=== PATIENT | female | born 1980 | race Caucasian/White ===

== ENCOUNTER 2017-04-12 06:28 | Emergency (ER) | payer OTHER ==
[~2017-04-12] VITALS: Ht 154.9 cm; Wt 73.0 kg
[~2017-04-12 06:28] MED LIST: ALPR0.5T10 PO; FAMO-18 PO; ONDA4TAB8 PO; TEMA15CA PO; TRAM50TA2 PO; ZIPR20CA7 PO; ZIPR60CA6 PO; ZOF8 PO
[2017-04-12 06:31] VITALS: Ht 154.9 cm; Wt 73.0 kg
[2017-04-12] MEDS ORDERED: ONDANSETRON (ODT) 4 MG TAB ODT STA (06:52)
[2017-04-12] MEDS ORDERED: ONDANSETRON 4 MG INJ IM STA (06:56)
--- NOTE | 2017-04-12 06:59 | ERD ---
ER Documentation Chief Complaint Date/Time DATE: 04/12/17 TIME: 06:57 Chief Complaint vomiting and diarrhea HPI 36-year-old female presents emergency department with 2 day history of vomiting , diarrhea, pelvic pressure, cough and runny nose. She states she has had tactile fevers as well. She reports that she has had intermittent vomiting for the past 2 days, that were nonbloody nonbilious episodes, and up to 10 episodes of diarrhea nonbloody number mucousy. She denies any abdominal pain at this time. She denies recent travel. ROS All systems reviewed and are negative except as per history of present illness. Medications Home Meds Active Scripts Ondansetron (Ondansetron Odt) 4 Mg Tab.rapdis, 4 MG PO Q6H Y for NAUSEA AND/OR VOMITING, #10 TAB Prov:FRANKY OVIEDO PA-C 04/12/17 Azithromycin* (Zithromax*) 500 Mg Tablet, 1000 MG PO ONCE, #2 TAB Prov:FRANKY OVIEDO PA-C 04/12/17 Famotidine* (Pepcid*) 20 Mg Tablet, 20 MG PO BID, #30 TAB Prov:PHUONG QUIJANO 07/08/15 Tramadol HCl (Tramadol HCl) 50 Mg Tab, 50 MG PO Q6 Y for PAIN, #10 TAB Prov:PHUONG QUIJANO 07/08/15 Ondansetron Hcl* (Zofran*) 4 Mg Tablet, 4 MG PO Q8 for NAUSEA AND/OR VOMITING, # 10 TAB Prov:PHUONG QUIJANO 07/08/15 Famotidine* (Pepcid*) 20 Mg Tablet, 20 MG PO BID, #30 TAB Prov:MONIQUE TAVERAS MD 06/29/15 Tramadol HCl (Tramadol HCl) 50 Mg Tab, 50 MG PO Q4 Y for PAIN, #16 TAB Prov:MONIQUE TAVERAS MD 06/29/15 Ondansetron Hcl* (Zofran* ODT) 8 mg -ODT Tab.disper, 8 MG PO Q6 Y for NAUSEA AND /OR VOMITING, #10 TAB Prov:MONIQUE TAVERAS MD 06/29/15 Reported Medications Temazepam* (Temazepam*) 15 Mg Capsule, 15 MG PO HS Y for INSOMNIA, CAP 9/21/15 Alprazolam (Alprazolam) 0.5 Mg Tab.rapdis, 0.5 MG PO BID, TAB 06/29/15 Ziprasidone* (Geodon*) 60 Mg Capsule, 60 MG PO PM, CAP 06/29/15 Ziprasidone* (Geodon*) 20 Mg Capsule, 20 MG PO AM, CAP 06/29/15 Allergies Allergies: Coded Allergies: acetaminophen (Verified Allergy, Unknown, 07/08/15) penicillin (Verified Allergy, Unknown, 07/08/15) prochlorperazine (Verified Allergy, Unknown, 07/08/15) promethazine (Verified Allergy, Unknown, 06/29/15) PMhx/Soc History of Surgery: Yes (bialat tubulagation) Anesthesia Reaction: No Hx Neurological Disorder: No Hx Respiratory Disorders: No Hx Cardiac Disorders: No Hx Psychiatric Problems: Yes (bipolar,schizo) Hx Miscellaneous Medical Probl: Yes (polyps in colon, severe N/V) Hx Alcohol Use: No Hx Substance Use: Yes (marijuana q day) Hx Tobacco Use: No Physical Exam Vitals Vital Signs Date Time Temp Pulse Resp B/P Pulse Ox O2 Delivery O2 Flow Rate FiO2 04/12/17 06:31 97.9 90 18 118/79 99 Physical Exam General: Well-developed, well-nourished. The patient appears in no acute distress. HEENT: Head is normocephalic, atraumatic. No scleral icterus. Pupils are equal , round, and reactive. Oral mucous membranes are moist. No pharyngeal erythema. Neck: Supple. Nontender. Lungs: Clear to auscultation. Normal air movement. Heart: Regular rate and rhythm. S1 and S2 are normal. No murmurs, gallops, or rubs. Abdomen: Soft, nontender, nondistended. Bowel sounds are normoactive. Extremities: No clubbing or cyanosis. Normal pulses. Moving extremities x 4. No weakness. Neurologic: Alert and oriented 3. No focal deficits. Skin: Normal turgor. No rash or lesions. Results 24 hrs Laboratory Tests Test 04/12/17 07:30 04/12/17 07:31 Bedside Urine pH (LAB) 8.5 Bedside Urine Protein (LAB) 1+ Bedside Urine Glucose (UA) Negative Bedside Urine Ketones (LAB) Negative Bedside Urine Blood Trace-intact Bedside Urine Nitrite (LAB) Negative Bedside Urine Leukocyte Esterase (L Negative Bedside Glucose 127mg/dL Current Medications Medications (Trade) Dose Ordered Sig/Chase Route PRN Reason Start Time Stop Time Status Last Admin Dose Admin Ondansetron HCl (Zofran Odt) 4 mg ONCE STAT ODT 04/12/17 06:52 04/12/17 06:57 DC Ondansetron HCl (Zofran Inj) 4 mg ONCE STAT IM 04/12/17 06:56 04/12/17 06:58 DC 04/12/17 07:00 Procedures/MDM ED course: She was given Zofran 4 mg IM, she states that the Zofran ODT causes her to have more nausea and vomiting. Accu-Chek was 127. Medical decision making: This is a 36-year-old female coming in with vomiting and diarrhea, also reports sore throat and cough for the past 2 days. She also states that this could have been from food that she had eaten the other night, she reports that she had gotten sick after eating pasta. Patient's abdominal examination is benign, she does not have any signs of diverticulitis, bowel perforation, intra-abdominal abscess, acute appendicitis, or acute hepatobiliary process. She was given Zofran emergency department feeling much better and will be discharged home. Urine was negative for infection. Departure Diagnosis: Primary Impression: Vomiting and diarrhea Condition: FRANKY Easley PA-C Apr 12, 2017 06:58
[2017-04-12 07:26] LABS: URINE BLOOD (Dip) POC Trace-intact (NEGATIVE)
[2017-04-12] MEDS ORDERED: ONDA4TAB14 PO (07:52)
[2017-04-12] MEDS ORDERED: AZIT500T3 PO (07:52)
== END 2017-04-12 08:39 | disposition home or self-care (01) ==
LOC: FTE 06:28
DX: R11.10 Vomiting, unspecified (principal); R19.7 Diarrhea, unspecified; R10.2 Pelvic and perineal pain
CPT/HCPCS: 81003; 82962; 96372; J2405; Z7502

== ENCOUNTER 2017-08-11 06:28 | Emergency (ER) | payer OTHER ==
[~2017-08-11] VITALS: Ht 154.9 cm; Wt 78.0 kg
[~2017-08-11 06:28] MED LIST changes: +AZIT500T3 PO; -FAMO-18 PO; +FAMO-96 PO; +ONDA4TAB14 PO
[2017-08-11 06:38] VITALS: Ht 154.9 cm; Wt 78.0 kg
[2017-08-11] MEDS ORDERED: KETOROLAC 30 MG INJ IV STA (06:43)
[2017-08-11] MEDS ORDERED: ONDANSETRON 4 MG INJ IV STA (06:43)
[2017-08-11] MEDS ORDERED: SOD CHLORIDE 0.9% 1,000 ML IV STA (06:43)
[2017-08-11] MEDS ORDERED: LORAZEPAM 2 MG INJ IV ONE (07:00)
--- NOTE | 2017-08-11 07:54 | RADRPT ---
PROCEDURE: CT Abdomen and pelvis without contrast. CLINICAL INDICATION: Abdominal pain. Nausea and vomiting. TECHNIQUE: CT scan of the abdomen and pelvis without contrast was performed on a multidetector hig h-resolution CT scan. . Coronal and sagittal reformatted images were obtained from the [facility] e images. Standard CT scan of the abdomen pelvis without contrast protocols were performed. The total exam CTDI equals 13.42 mGy and the total exam DLP equals 712.22 mGy-cm. One or more of the following dose reduction techniques were used: - Automated exposure control. - Adjustment of the mA and/or kV according to patient size. Use of iterative reconstruction technique. COMPARISON: CT abdomen pelvis 06/29/2015 FINDINGS: The kidneys are normal in size with mild bilateral medullary nephrocalcinosis. No hydronephrosis or intra renal masses bilaterally. There are 2 punctate 2 mm non-obstructing inferior right renal calci fied calculi. Urinary bladder is contracted but otherwise unremarkable. Anteverted anteflexed uterus. Punctate calcification in the left adnexa likely a tiny left ovarian c alcification of the tiny dermoid. Low densities in the right and left adnexa likely ovarian follicle s. No evidence of intra-abdominal free air, free fluid, abscesses or lymphadenopathy. The appendix is unremarkable. The stomach, small bowel and large bowel are unremarkable. Liver spleen pancreas adrenal glands and gallbladder are unremarkable. No evidence biliary ductal di lation. Mild atherosclerosis of the abdominal aorta but no evidence of aneurysm. Abdominal pelvic wall unrem arkable. Lung bases unremarkable. Osseous structures are unremarkable. IMPRESSION: 1. 2 punctate 2 mm non-obstructing inferior right renal calcified calculi. No other calcified urina ry calculi and no obstructive uropathy. 2. Unremarkable appendix. No evidence gastrointestinal disease. 3. No evidence of intra or free air fluid abscesses or lymphadenopathy. RPTAT:AAJJ Physician Margo Date Time Electronically viewed and signed by Physician Margo on 08/11/2017 07:54 /
--- NOTE | 2017-08-11 07:56 | RADRPT ---
PROCEDURE: US Pelvis. CLINICAL INDICATION: Abdominal Pain LMP 07/20/2017 TECHNIQUE: Multiple sonographic images of the pelvis were obtained utilizing a transabdominal and endovaginal technique. The images were reviewed on a PACS workstation. COMPARISON: None. FINDINGS: The uterus is anteverted and measures 8.9 x 3.9 x 4.6 cm. The endometrial echo complex is thickened and measures 1.0 cm. The cervix is normal. There is no evidence for free fluid. The right ovary has a normal echotexture and measures 3.6 x 2.1 x 2.1 cm . The left ovary has a normal echotexture and measures 3.1 x 1.6 x 1.9 cm. Doppler flow is demonstrated in both ovaries. No adnexal mass is identi fied.. IMPRESSION: Thickened endometrium. No evidence of ovarian torsion. Physician Carlyn Date Time Electronically viewed and signed by Physician Carlyn on 08/11/2017 07:56 /
[2017-08-11] MEDS ORDERED: ZIPR80CA22 PO (08:01)
[2017-08-11] MEDS ORDERED: TEMA30CA PO (08:02)
[2017-08-11] MEDS ORDERED: ONDA4TAB14 PO (08:39)
[2017-08-11] MEDS ORDERED: IBUP-1542 PO (08:39)
[2017-08-11 08:47] VITALS: BP 110/61; PULSE 66; RESP 18
--- NOTE | 2017-08-11 10:06 | ERD ---
ER Documentation Chief Complaint Chief Complaint Abdominal Pain HPI Patient is a 36-year-old female with asthma who presents with abdominal pain as well as nausea and vomiting. The patient was brought in by ambulance. The symptoms started 2 days ago. She says that she cannot sleep. She tried Zofran at home without help. She said the pain is been constant and sharp in nature. She has subjective fever but has not taken her temperature. Upon review of old medical records this is the patient's fourth visit to the ER since 2014. ROS All systems reviewed and are negative except as per history of present illness. Medications Home Meds Active Scripts Ondansetron (Ondansetron Odt) 4 Mg Tab.rapdis, 4 MG PO Q6H Y for NAUSEA AND/OR VOMITING, #30 TAB Prov:MELANIE GONSALEZ MD 08/11/17 Ibuprofen* (Motrin*) 600 Mg Tab, 600 MG PO Q6H Y for PAIN AND OR ELEVATED TEMP, #30 TAB Prov:MELANIE GONSALEZ MD 08/11/17 Reported Medications Temazepam* (Temazepam*) 30 Mg Capsule, 30 MG PO HS Y for INSOMNIA, CAP 08/11/17 Ziprasidone* (Geodon*) 80 Mg Capsule, 80 MG PO BID, CAP 08/11/17 Discontinued Reported Medications Temazepam* (Temazepam*) 15 Mg Capsule, 15 MG PO HS Y for INSOMNIA, CAP 06/29/15 Alprazolam (Alprazolam) 0.5 Mg Tab.rapdis, 0.5 MG PO BID, TAB 06/29/15 Ziprasidone* (Geodon*) 60 Mg Capsule, 60 MG PO PM, CAP 06/29/15 Ziprasidone* (Geodon*) 20 Mg Capsule, 20 MG PO AM, CAP 06/29/15 Discontinued Scripts Ondansetron (Ondansetron Odt) 4 Mg Tab.rapdis, 4 MG PO Q6H Y for NAUSEA AND/OR VOMITING, #10 TAB Prov:FRANKY OVIEDO PA-C 04/12/17 Azithromycin* (Zithromax*) 500 Mg Tablet, 1000 MG PO ONCE, #2 TAB Prov:FRANKY OVIEDO PA-C 04/12/17 Famotidine* (Pepcid*) 20 Mg Tablet, 20 MG PO BID, #30 TAB Prov:PHUONG QUIJANO 9/30/15 Tramadol HCl (Tramadol HCl) 50 Mg Tab, 50 MG PO Q6 Y for PAIN, #10 TAB Prov:PHUONG QUIJANO 07/08/15 Ondansetron Hcl* (Zofran*) 4 Mg Tablet, 4 MG PO Q8 for NAUSEA AND/OR VOMITING, # 10 TAB Prov:PHUONG QUIJANO 07/08/15 Famotidine* (Pepcid*) 20 Mg Tablet, 20 MG PO BID, #30 TAB Prov:MONIQUE TAVERAS MD 06/29/15 Tramadol HCl (Tramadol HCl) 50 Mg Tab, 50 MG PO Q4 Y for PAIN, #16 TAB Prov:MONIQUE TAVERAS MD 06/29/15 Ondansetron Hcl* (Zofran* ODT) 8 mg -ODT Tab.disper, 8 MG PO Q6 Y for NAUSEA AND /OR VOMITING, #10 TAB Prov:MONIQUE TAVERAS MD 06/29/15 Allergies Allergies: Coded Allergies: acetaminophen (Verified Allergy, Unknown, 08/11/17) penicillin (Verified Allergy, Unknown, 08/11/17) prochlorperazine (Verified Allergy, Unknown, 08/11/17) promethazine (Verified Allergy, Unknown, 08/11/17) PMhx/Soc History of Surgery: Yes (bialat tubulagation) Anesthesia Reaction: No Hx Neurological Disorder: No Hx Respiratory Disorders: No Hx Cardiac Disorders: No Hx Psychiatric Problems: Yes (bipolar,schizo) Hx Miscellaneous Medical Probl: Yes (polyps in colon, severe N/V) Hx Alcohol Use: No Hx Substance Use: Yes (marijuana q day) Hx Tobacco Use: No Smoking Status: Never smoker FmHx Family History: diabetes Physical Exam Vitals Vital Signs Date Time Temp Pulse Resp B/P Pulse Ox O2 Delivery O2 Flow Rate FiO2 08/11/17 08:47 66 18 110/61 99 Room Air 08/11/17 07:51 66 18 105/61 99 Room Air 08/11/17 06:38 98.2 76 21 135/84 99 Physical Exam Const: Moderate distress secondary to pain Head: Atraumatic Eyes: Normal Conjunctiva ENT: Normal External Ears, Nose and Mouth. Neck: Full range of motion..~ No meningismus. Resp: Clear to auscultation bilaterally Cardio: Regular rate and rhythm, no murmurs Abd: Soft, right lower quadrant tenderness to palpation without rebound or guarding Skin: No petechiae or rashes Back: No midline or flank tenderness Ext: No cyanosis, or edema Neur: Awake and alert Psych: Normal Mood and Affect Result Diagram: 08/11/17 0656 08/11/17 0656 Results 24 hrs Laboratory Tests Test 08/11/17 06:45 08/11/17 06:56 Urine Color YELLOW Urine Clarity CLOUDY Urine pH 9.0 Urine Specific [place] 1.030 Urine Ketones 1+mg/dL Urine Nitrite NEGATIVEmg/dL Urine Bilirubin NEGATIVEmg/dL Urine Urobilinogen 1+mg/dL Urine Leukocyte Esterase NEGATIVELeu/ul Urine Microscopic RBC 46/HPF Urine Microscopic WBC 2/HPF Urine Squamous Epithelial Cells MODERATE/HPF Urine Bacteria FEW/HPF Urine Mucus MODERATE/HPF Urine Hemoglobin 1+mg/dL Urine Glucose NEGATIVEmg/dL Urine Total Protein 2+mg/dl White Blood Count 9.010^3/ul Red Blood Count 4.6510^6/ul Hemoglobin 14.0g/dl Hematocrit 40.3% Mean Corpuscular Volume 86.7fl Mean Corpuscular Hemoglobin 30.1pg Mean Corpuscular Hemoglobin Concent 34.7g/dl Red Cell Distribution Width 13.2% Platelet Count 81484^3/UL Mean Platelet Volume 11.1fl Neutrophils % 77.1% Lymphocytes % 16.8% Monocytes % 5.6% Eosinophils % 0.0% Basophils % 0.3% Nucleated Red Blood Cells % 0.0/100WBC Neutrophils # 7.010^3/ul Lymphocytes # 1.510^3/ul Monocytes # 0.510^3/ul Eosinophils # 0.010^3/ul Basophils # 0.010^3/ul Nucleated Red Blood Cells # 0.010^3/ul Sodium Level 144mmol/L Potassium Level 3.9mmol/L Chloride Level 105mmol/L Carbon Dioxide Level 26mmol/L Anion Gap 17 Blood Urea Nitrogen 10mg/dl Creatinine 0.82mg/dl Glucose Level 130mg/dl Calcium Level 9.8mg/dl Total Bilirubin 0.6mg/dl Direct Bilirubin 0.00mg/dl Indirect Bilirubin 0.6mg/dl Aspartate Amino Transf (AST/SGOT) 23IU/L Alanine Aminotransferase (ALT/SGPT) 31IU/L Alkaline Phosphatase 100IU/L Total Protein 8.4g/dl Albumin 4.7g/dl Globulin 3.70g/dl Albumin/Globulin Ratio 1.27 Lipase 42U/L Current Medications Medications (Trade) Dose Ordered Sig/Chase Route PRN Reason Start Time Stop Time Status Last Admin Dose Admin Sodium Chloride (NS) 1,000 ml @ 1,000 mls/hr Q1H STAT IV 08/11/17 06:43 08/11/17 07:42 DC 08/11/17 07:19 Ondansetron HCl (Zofran Inj) 4 mg ONCE STAT IV 08/11/17 06:43 08/11/17 06:46 DC 08/11/17 07:19 Ketorolac Tromethamine (Toradol) 30 mg ONCE STAT IV 08/11/17 06:43 08/11/17 06:46 DC 08/11/17 07:19 Lorazepam (Ativan) 0.5 mg ONCE ONCE IV 08/11/17 07:00 08/11/17 07:01 DC 08/11/17 07:19 Procedures/MDM CT scan negative for appendicitis per radiology. Ultrasound negative for ovarian torsion per radiology. Patient is a 36-year-old female presents with right lower quadrant abdominal pain. She had a workup including laboratory studies, CT scan, and ultrasound. There was no sign of surgical process. Laboratory studies are basically normal. Urine shows no sign of infection. I doubt appendicitis, cholecystitis , pancreatitis, or bowel obstruction. I doubt or ectopic . I doubt ovarian torsion. The patient will be discharged home but will need close follow-up with her primary doctor within 24 hours for reevaluation. She can return sooner for any worsening symptoms. Departure Diagnosis: Primary Impression: Abdominal pain Abdominal location: right lower quadrant Qualified Code: R10.31 - Right lower quadrant abdominal pain Condition: Fair Patient Instructions: Abdominal Pain Referrals: Dr. Sewell Additional Instructions: FOLLOW UP WITH YOUR PRIMARY CARE PHYSICIAN TOMORROW.Return to this facility if you are not improving as expected. MELANIE GONSALEZ MD Aug 11, 2017 10:06
== END 2017-08-11 08:48 | disposition home or self-care (01) ==
LOC: E/R 06:28
DX: R10.31 Right lower quadrant pain (principal); R11.2 Nausea with vomiting, unspecified; J45.909 Unspecified asthma, uncomplicated
CPT/HCPCS: 36415; 74176; 76830; 76856; 80053; 81001; 83690; 85025; 96374; 96375; J1885; J2060; J2405; J7030; Z7502

== ENCOUNTER 2017-10-07 01:17 | Emergency (ER) | END 2017-10-07 10:29 | disposition home or self-care (01) ==

== ENCOUNTER 2017-11-02 07:08 | Emergency (ER) | END 2017-11-02 12:11 | disposition home or self-care (01) ==

== ENCOUNTER 2018-04-04 09:20 | Emergency (ER) | END 2018-04-04 12:52 | disposition home or self-care (01) ==

== ENCOUNTER 2018-09-25 10:39 | Emergency (ER) | END 2018-09-25 15:23 | disposition home or self-care (01) ==

== ENCOUNTER 2019-01-08 15:05 | Emergency (ER) | payer OTHER ==
[~2019-01-08] VITALS: Wt 80.0 kg
[~2019-01-08 15:05] MED LIST changes: +ACET500C5 PO; -ALPR0.5T10 PO; -AZIT500T3 PO; +IBUP-1542 PO; +METO10TA92 PO; +METO5TAB2 PO; -ONDA4TAB14 PO; -ONDA4TAB8 PO; -TEMA15CA PO; +TEMA30CA PO; -TRAM50TA2 PO; -ZIPR20CA7 PO; -ZIPR60CA6 PO; +ZIPR80CA22 PO; -ZOF8 PO
[2019-01-08] MEDS ORDERED: METOCLOPRAMIDE 10 MG INJ IV ONE (16:30)
[2019-01-08] MEDS ORDERED: DIPHENHYDRAMINE 50 MG INJ IV ONE (16:30)
[2019-01-08] MEDS ORDERED: SOD CHLORIDE 0.9% 1,000 ML IV ONE (16:30)
[2019-01-08] MEDS ORDERED: METO10TA92 PO (18:30)
--- NOTE | 2019-01-08 18:32 | ERD ---
ER Documentation Chief Complaint Chief Complaint vomiting and diarrhea x 2 days ROS All systems reviewed and are negative except as per history of present illness. Medications Home Meds Active Scripts Metoclopramide* (Reglan*) 10 Mg Tablet, 10 MG PO Q6H PRN for NAUSEA AND OR VOMITING, #20 TAB Prov:SUNITA WHALEN DO 01/08/19 Ibuprofen* (Motrin*) 600 Mg Tab, 600 MG PO Q6, #30 TAB Prov:SABRINA CAVAZOS PA-C 09/25/18 Famotidine* (Pepcid*) 20 Mg Tablet, 20 MG PO DAILY, #20 TAB Prov:RODOLFO GOMEZ PA-C 04/04/18 Acetaminophen* (Tylophen*) 500 Mg Capsule, 1 CAP PO Q4 PRN for PAIN AND OR ELEVATED TEMP, #30 CAP Prov:RODOLFO GOMEZ PA-C 04/04/18 Metoclopramide* (Reglan*) 10 Mg Tablet, 10 MG PO Q6 PRN for NAUSEA AND/OR VOMITING, #20 TAB Prov:RODOLFO GOMEZ PA-C 04/04/18 Metoclopramide Hcl (Reglan) 5 Mg Tab, 5 MG PO Q6H PRN for NAUSEA for 20 Days, TAB Prov:IRMA LOPEZ MD 11/02/17 Reported Medications Temazepam* (Temazepam*) 30 Mg Capsule, 30 MG PO HS PRN for INSOMNIA, CAP 08/11/17 Ziprasidone* (Geodon*) 80 Mg Capsule, 80 MG PO BID, CAP 08/11/17 Allergies Allergies: Coded Allergies: acetaminophen (Verified Allergy, Unknown, 04/04/18) penicillin (Verified Allergy, Unknown, 04/04/18) prochlorperazine (Verified Allergy, Unknown, 04/04/18) promethazine (Verified Allergy, Unknown, 04/04/18) PMhx/Soc History of Surgery: Yes (bilateral tubal ligation) Anesthesia Reaction: No Hx Neurological Disorder: No Hx Respiratory Disorders: No Hx Cardiac Disorders: No Hx Psychiatric Problems: Yes (bipolar,schizo) Hx Miscellaneous Medical Probl: Yes (polyps in colon, severe N/V) Hx Alcohol Use: No Hx Substance Use: Yes (marijuana q day) Hx Tobacco Use: No Smoking Status: Never smoker Physical Exam Vitals Vital Signs Date Temp Pulse Resp B/P (MAP) Pulse Ox O2 O2 Flow FiO2 Time Delivery Rate 01/08/19 97.5 110 18 141/87 99 15:08 (105) Physical Exam Const: No acute distress Head: Atraumatic Eyes: Normal Conjunctiva ENT: Normal External Ears, Nose and Mouth. Neck: Full range of motion. No meningismus. Resp: Clear to auscultation bilaterally Cardio: Regular rate and rhythm, no murmurs Abd: Soft, non tender, non distended. Normal bowel sounds Skin: No petechiae or rashes Back: No midline or flank tenderness Ext: No cyanosis, or edema Neur: Awake and alert Psych: Normal Mood and Affect Result Diagram: 01/08/19 1651 01/08/19 1651 Results 24 hrs Laboratory Tests Test 01/08/19 16:51 White Blood Count 13.0 10^3/ul Red Blood Count 4.65 10^6/ul Hemoglobin 13.8 g/dl Hematocrit 40.5 % Mean Corpuscular Volume 87.1 fl Mean Corpuscular Hemoglobin 29.7 pg Mean Corpuscular Hemoglobin Concent 34.1 g/dl Red Cell Distribution Width 14.5 % Platelet Count 261 10^3/UL Mean Platelet Volume 11.1 fl Immature Granulocytes % 0.500 % Neutrophils % 73.2 % Lymphocytes % 19.6 % Monocytes % 6.3 % Eosinophils % 0.1 % Basophils % 0.3 % Nucleated Red Blood Cells % 0.0 /100WBC Immature Granulocytes # 0.060 10^3/ul Neutrophils # 9.6 10^3/ul Lymphocytes # 2.6 10^3/ul Monocytes # 0.8 10^3/ul Eosinophils # 0.0 10^3/ul Basophils # 0.0 10^3/ul Nucleated Red Blood Cells # 0.0 10^3/ul Sodium Level 143 mmol/L Potassium Level 3.5 mmol/L Chloride Level 109 mmol/L Carbon Dioxide Level 21 mmol/L Anion Gap 13 Blood Urea Nitrogen 9 mg/dl Creatinine 0.82 mg/dl Est Glomerular Filtrat Rate mL/min > 60 mL/min Glucose Level 103 mg/dl Calcium Level 10.2 mg/dl Total Bilirubin 0.5 mg/dl Direct Bilirubin 0.00 mg/dl Indirect Bilirubin 0.5 mg/dl Aspartate Amino Transf (AST/SGOT) 21 IU/L Alanine Aminotransferase (ALT/SGPT) 17 IU/L Alkaline Phosphatase 104 IU/L Total Protein 8.2 g/dl Albumin 4.9 g/dl Globulin 3.30 g/dl Albumin/Globulin Ratio 1.48 Current Medications Medications Dose Sig/Chase Start Time Status Last (Trade) Ordered Route PRN Stop Time Admin Dose Reason Admin Sodium 1,000 ml @ Q1H ONCE 01/08/19 DC 01/08/19 Chloride 1,000 mls/hr IV 16:30 01/08/19 16:45 17:29 10 mg ONCE ONCE 01/08/19 DC 01/08/19 Metoclopramid IV 16:30 01/08/19 16:46 e HCl 16:31 (Reglan) 25 mg ONCE ONCE 01/08/19 DC 01/08/19 Diphenhydrami IV 16:30 01/08/19 16:46 ne HCl 16:31 (Benadryl) Departure Diagnosis: Primary Impression: Vomiting Vomiting type: unspecified Vomiting Intractability: unspecified Nausea presence: unspecified Qualified Codes: R11.10 - Vomiting, unspecified Condition: Fair Patient Instructions: Vomiting (8Y-Adult) Referrals: [facility] (PCP) Additional Instructions: Call your primary care doctor TOMORROW for an appointment during the next 1-2 days.See the doctor sooner or return here if your condition worsens before your appointment time. SUNITA WHALEN DO Jan 08, 2019 18:32
[2019-01-08 18:47] VITALS: BP 125/80; PULSE 84; RESP 18
== END 2019-01-08 18:49 | disposition home or self-care (01) ==
LOC: FTE 15:05
DX: R11.10 Vomiting, unspecified (principal)
CPT/HCPCS: 80053; 85025; J1200; J2765; J7030; 96361; 96374; 96375

== ENCOUNTER 2019-04-15 14:50 | Emergency (ER) | payer OTHER ==
[~2019-04-15] VITALS: Ht 160 cm; Wt 78.7 kg
[2019-04-15 14:53] VITALS: Ht 160 cm; Wt 78.7 kg
--- NOTE | 2019-04-15 16:07 | ERD ---
ER Documentation Chief Complaint Chief Complaint vomitting HPI The patient is a 38-year-old female, presenting to the ER because of decreased appetite, vomiting or diarrhea for the last 3 days, had similar symptoms previously, denies hematemesis, hematochezia. She denies fever, chills, neck pain, chest pain, dyspnea, complains of vague upper abdominal discomfort from the vomiting, denies dysuria. She denies any recent traveling, smokes socially, denies drinking, irregular menstrual. She denies any illicit drug Past medical history: Bipolar, asthma Surgical history: Tubal ligation, polypectomy from colonoscopy recently ROS All systems reviewed and are negative except as per history of present illness. Medications Home Meds Active Scripts Metoclopramide* (Reglan*) 10 Mg Tablet, 10 MG PO Q6 PRN for NAUSEA AND/OR VOMITING, #10 TAB Prov:SUNITA HAGAN MD 04/15/19 Pantoprazole* (Protonix*) 40 Mg Tablet.dr, 40 MG PO DAILY, #10 TAB Prov:SUNITA HAGAN MD 04/15/19 Pantoprazole (Protonix) 40 Mg Tabec, 40 MG PO DAILY, #10 TAB Prov:SUNITA HAGAN MD 04/15/19 Metoclopramide* (Reglan*) 10 Mg Tablet, 10 MG PO Q6 PRN for NAUSEA AND/OR VOMITING, #10 TAB Prov:SUNITA HAGAN MD 04/15/19 Metoclopramide* (Reglan*) 10 Mg Tablet, 10 MG PO Q6H PRN for NAUSEA AND OR VOMITING, #20 TAB Prov:SUNITA WHALEN DO 01/08/19 Ibuprofen* (Motrin*) 600 Mg Tab, 600 MG PO Q6, #30 TAB Prov:SABRINA CAVAZOS PA-C 09/25/18 Famotidine* (Pepcid*) 20 Mg Tablet, 20 MG PO DAILY, #20 TAB Prov:RODOLFO GOMEZ PA-C 04/04/18 Acetaminophen* (Tylophen*) 500 Mg Capsule, 1 CAP PO Q4 PRN for PAIN AND OR ELEVATED TEMP, #30 CAP Prov:RODOLFO GOMEZ PA-C 04/04/18 Metoclopramide* (Reglan*) 10 Mg Tablet, 10 MG PO Q6 PRN for NAUSEA AND/OR VOMITING, #20 TAB Prov:RODOLFO GOMEZ PA-C 04/04/18 Metoclopramide Hcl (Reglan) 5 Mg Tab, 5 MG PO Q6H PRN for NAUSEA for 20 Days, TAB Prov:IRMA LOPEZ MD 11/02/17 Reported Medications Temazepam* (Temazepam*) 30 Mg Capsule, 30 MG PO HS PRN for INSOMNIA, CAP 08/11/17 Ziprasidone* (Geodon*) 80 Mg Capsule, 80 MG PO BID, CAP 08/11/17 Allergies Allergies: Coded Allergies: acetaminophen (Verified Allergy, Unknown, 04/04/18) penicillin (Verified Allergy, Unknown, 04/04/18) prochlorperazine (Verified Allergy, Unknown, 04/04/18) promethazine (Verified Allergy, Unknown, 04/04/18) PMhx/Soc History of Surgery: Yes (bilateral tubal ligation) Anesthesia Reaction: No Hx Neurological Disorder: No Hx Respiratory Disorders: No Hx Cardiac Disorders: No Hx Psychiatric Problems: Yes (bipolar,schizo) Hx Miscellaneous Medical Probl: Yes (polyps in colon, severe N/V) Hx Alcohol Use: No Hx Substance Use: Yes (marijuana q day) Hx Tobacco Use: No Physical Exam Vitals Vital Signs Date Temp Pulse Resp B/P (MAP) Pulse Ox O2 O2 Flow FiO2 Time Delivery Rate 04/15/19 97.6 82 16 131/86 99 Room Air 19:52 (101) 04/15/19 98.0 84 18 149/96 99 14:53 (113) Physical Exam Const: No acute distress. Head: Atraumatic. Eyes: Normal Conjunctiva. ENT: Normal External Ears, Nose and Mouth. Neck: Full range of motion. No meningismus. Resp: Clear to auscultation bilaterally. Cardio: Regular rate and rhythm. Abd: Soft, non distended, normal bowel sounds, mild epigastric and right upper quadrant discomfort, no right lower quadrant/rigidity/rebound/CVA tenderness Skin: No petechiae or rashes. Back: No midline or flank tenderness. Ext: No cyanosis, or edema. Neur: Awake and alert. No focal deficit Psych: Normal Mood and Affect. Result Diagram: 04/15/19 1627 04/15/19 1627 Results 24 hrs Laboratory Tests Test 04/15/19 16:27 04/15/19 17:45 04/15/19 17:50 White Blood Count 9.7 10^3/ul Red Blood Count 4.57 10^6/ul Hemoglobin 13.7 g/dl Hematocrit 39.4 % Mean Corpuscular Volume 86.2 fl Mean Corpuscular Hemoglobin 30.0 pg Mean Corpuscular Hemoglobin Concent 34.8 g/dl Red Cell Distribution Width 12.7 % Platelet Count 207 10^3/UL Mean Platelet Volume 11.0 fl Immature Granulocytes % 0.300 % Neutrophils % 75.7 % Lymphocytes % 18.1 % Monocytes % 5.4 % Eosinophils % 0.2 % Basophils % 0.3 % Nucleated Red Blood Cells % 0.0 /100WBC Immature Granulocytes # 0.030 10^3/ul Neutrophils # 7.4 10^3/ul Lymphocytes # 1.8 10^3/ul Monocytes # 0.5 10^3/ul Eosinophils # 0.0 10^3/ul Basophils # 0.0 10^3/ul Nucleated Red Blood Cells # 0.0 10^3/ul Sodium Level 145 mmol/L Potassium Level 3.6 mmol/L Chloride Level 111 mmol/L Carbon Dioxide Level 23 mmol/L Anion Gap 11 Blood Urea Nitrogen 10 mg/dl Creatinine 0.79 mg/dl Est Glomerular Filtrat Rate mL/min > 60 mL/min Glucose Level 107 mg/dl Calcium Level 10.6 mg/dl Total Bilirubin 0.7 mg/dl Direct Bilirubin 0.00 mg/dl Indirect Bilirubin 0.7 mg/dl Aspartate Amino Transf (AST/SGOT) 19 IU/L Alanine Aminotransferase (ALT/SGPT) 13 IU/L Alkaline Phosphatase 96 IU/L Total Protein 8.6 g/dl Albumin 4.8 g/dl Globulin 3.80 g/dl Albumin/Globulin Ratio 1.26 Lipase 91 U/L Urine Opiates Screen Negative Urine Barbiturates Negative Urine Amphetamines Screen Negative Urine Benzodiazepines Screen Negative Urine Cocaine Screen Negative Urine Cannabinoids Positive Ethyl Alcohol Level < 10.0 mg/dl POC Beta HCG, Qualitative NEGATIVE Bedside Urine pH (LAB) 8.5 Bedside Urine Protein (LAB) 2+ Bedside Urine Glucose (UA) Negative Bedside Urine Ketones (LAB) 3+ Bedside Urine Blood 1+ Bedside Urine Nitrite (LAB) Negative Bedside Urine Leukocyte Esterase (L Trace Current Medications Medications Dose Sig/Chase Start Time Status Last (Trade) Ordered Route PRN Stop Time Admin Dose Reason Admin Ondansetron 4 mg ONCE STAT 04/15/19 DC 04/15/19 HCl (Zofran IV 16:14 04/15/19 16:32 Inj) 16:17 Famotidine 20 mg ONCE ONCE 04/15/19 DC 04/15/19 (Pepcid Iv) IV 16:30 04/15/19 16:32 16:31 40 ml ONCE ONCE 04/15/19 DC Miscellaneous PO 17:30 04/15/19 Medication 17:34 (Gi Cocktail (2)) Ketorolac 30 mg ONCE STAT 04/15/19 DC 04/15/19 Tromethamine IV 17:22 04/15/19 17:37 (Toradol) 17:23 50 mg ONCE ONCE 04/15/19 DC 04/15/19 Diphenhydrami IV 18:00 04/15/19 18:46 ne HCl 18:01 (Benadryl) 10 mg ONCE ONCE 04/15/19 DC 04/15/19 Metoclopramid IV 18:00 04/15/19 18:46 e HCl 18:01 (Reglan) Procedures/[place] [id number] Radiology Main Line: [phone] DIAGNOSTIC IMAGING REPORT Patient: FLORINDA NEIL : 1980 Age: 38 Sex: F MR #: [id number] DOS: 04/15/19 1614 Ordering MD: SUNITA HAGAN MD Location: E/R Room/Bed: PROCEDURE: US Abdomen. CLINICAL INDICATION: abdominal pain TECHNIQUE: Multiple real-time images were acquired of the patient's right upper quadrant abdomen and retroperitoneum utilizing a high resolution transducer. COMPARISON: US ABDOMEN 04/04/2018 FINDINGS: The liver demonstrates normal echogenicity. The liver is enlarged in size and no focal solid lesions are seen. The liver measures 18.3 cm in length. The portal vein is patent with normal direction of flow. No intrahepatic biliary dilatation is seen. No gallstones are identified within the gallbladder. There is no pericholecystic fluid or gallbladder wall thickening. The common bile duct measures 4 mm in maximal dimension. The visualized portions of the pancreas are unremarkable. The tail of the pancreas is not seen. No free fluid is identified. The right kidney is normal in size, and demonstrate normal echogenicity and cortical thickness. The right kidney measures 10.6 cm in long dimension. There is no evidence of hydronephrosis. There are no kidney stones. RPTAT: AA IMPRESSION: Mild hepatomegaly. No evidence of gallstones. .Shar Pool MD, MD Date Time Electronically viewed and signed by .Shar Pool MD, MD on 04/15/2019 17:01 .S/ CC: SUNITA HAGAN MD [id number] MEDICAL MAKING DECISION: The patient is a 38-year-old female, presenting with recurrent vomiting of unclear etiology, was treated with Zofran IV, Pepcid IV, Benadryl 50 mg IV and Reglan 10 mg IV with good response, is stable for outpatient follow-up The differential diagnoses considered include but are not limited to cyclic vomiting syndrome, cholelithiasis, cholecystitis, choledocholithiasis, cholang itis, pancreatitis, hepatitis, gastritis, peptic ulcer disease, gastric ulcer, appendicitis, cystitis, diverticulitis, partial small bowel obstruction. Departure Diagnosis: Primary Impression: Vomiting Additional Impression: Marijuana abuse Condition: Good Comments The patient's blood pressure was elevated (>120/80) but appears stable without evidence of hypertension emergency or urgency. The patient was counseled about the risks of hypertension and urged to pursue outpatient monitoring and therapy within a week with their primary care physician. She was discharged with Reglan and Protonix I discussed the findings with the patient. I advised the patient to follow-up with the primary physician in about 1-2 days, sooner if needed and return if any concern. Disclaimer: Inadvertent spelling and grammatical errors are likely due to EHR/dictation software use and do not reflect on the overall quality of patient care. Also, please note that the electronic time recorded on this note does not necessarily reflect the actual time of the patient encounter. SUNITA HAGAN MD Apr 15, 2019 16:07
[2019-04-15] MEDS ORDERED: ONDANSETRON 4 MG INJ IV STA (16:14)
[2019-04-15] MEDS ORDERED: FAMOTIDINE 20 MG INJ IV ONE (16:30)
[2019-04-15] MEDS ORDERED: KETOROLAC 30 MG INJ IV STA (17:22)
[2019-04-15] MEDS ORDERED: LIDOCAINE/MYLANTA 40 ML BTL PO ONE (17:30)
[2019-04-15] MEDS ORDERED: DIPHENHYDRAMINE 50 MG INJ IV ONE (18:00)
[2019-04-15] MEDS ORDERED: METOCLOPRAMIDE 10 MG INJ IV ONE (18:00)
[2019-04-15] MEDS ORDERED: METO10TA92 PO ×2 (18:58→19:30)
[2019-04-15] MEDS ORDERED: PANT40TA4 PO (18:59)
[2019-04-15] MEDS ORDERED: PANT40TA3 PO (19:30)
[2019-04-15 19:52] VITALS: BP 131/86; PULSE 82; RESP 16
== END 2019-04-15 19:53 | disposition home or self-care (01) ==
LOC: E/R 14:50
DX: R11.10 Vomiting, unspecified (principal)
CPT/HCPCS: 36415; 76705; 80053; 80307; 81003; 81025; 83690; 85025; 96374; 96375; J1200; J1885; J2405; J2765; Z7502; Z7610

== ENCOUNTER 2019-05-13 05:55 | Emergency (ER) | payer OTHER ==
[~2019-05-13] VITALS: Ht 154.9 cm; Wt 78.8 kg
[~2019-05-13 05:55] MED LIST changes: +ACET325T33 PO; +PANT40TA3 PO; +PANT40TA4 PO
[2019-05-13 06:01] VITALS: BP 141/79; PULSE 100; RESP 19; Ht 154.9 cm; Wt 78.8 kg
[2019-05-13] MEDS ORDERED: METOCLOPRAMIDE 10 MG INJ IV STA (06:18)
[2019-05-13] MEDS ORDERED: KETOROLAC 30 MG INJ IV STA (06:18)
[2019-05-13] MEDS ORDERED: SOD CHLORIDE 0.9% 1,000 ML IV STA (06:18)
[2019-05-13] MEDS ORDERED: DIPHENHYDRAMINE 50 MG INJ IV ONE (06:30)
[2019-05-13] MEDS ORDERED: morphine 4 MG/ML VIAL IV STA (07:34)
--- NOTE | 2019-05-13 09:07 | ERD ---
ER Documentation Chief Complaint Chief Complaint ABD PAIN WITH N/V X2DAYS WITH HEMORRHOID PAIN HPI 38-year-old female presenting with abdominal pain with nausea and vomiting for the last 2 days. Patient states she had a history of polyps and hemorrhoids. She had some rectal bleeding when she wipes which is due to her hemorrhoids. Has had nausea with some vomiting but denies any diarrhea. She has some generalized stomach cramping and states she has had this before. In the past they have given her Reglan Benadryl and another medication which alleviates her symptoms. Denies other medical problems. Allergic to Compazine Phenergan penicillin and Vicodin. Surgical history tubal ligation. Social history smokes 1 to 2 cigarettes a day but denies drug use. ROS All systems reviewed and are negative except as per history of present illness. Medications Home Meds Active Scripts Acetaminophen* (Tylenol*) 325 Mg Tablet, 2 TAB PO Q6 PRN for PAIN AND OR ELEVATED TEMP, #20 TAB Prov:PRATIBHA ALMANZAR PA-C 05/13/19 Metoclopramide* (Reglan*) 10 Mg Tablet, 10 MG PO Q6 PRN for NAUSEA AND/OR VOMITING, #10 TAB Prov:SUNITA HAGAN MD 04/15/19 Pantoprazole* (Protonix*) 40 Mg Tablet.dr, 40 MG PO DAILY, #10 TAB Prov:SUNITA HAGAN MD 04/15/19 Pantoprazole (Protonix) 40 Mg Tabec, 40 MG PO DAILY, #10 TAB Prov:SUNITA HAGAN MD 04/15/19 Metoclopramide* (Reglan*) 10 Mg Tablet, 10 MG PO Q6 PRN for NAUSEA AND/OR VOMITING, #10 TAB Prov:SUNITA HAGAN MD 04/15/19 Metoclopramide* (Reglan*) 10 Mg Tablet, 10 MG PO Q6H PRN for NAUSEA AND OR VOMITING, #20 TAB Prov:SUNITA WHALEN DO 01/08/19 Ibuprofen* (Motrin*) 600 Mg Tab, 600 MG PO Q6, #30 TAB Prov:SABRINA CAVAZOS PA-C 09/25/18 Famotidine* (Pepcid*) 20 Mg Tablet, 20 MG PO DAILY, #20 TAB Prov:RODOLFO GOMEZ PA-C 04/04/18 Acetaminophen* (Tylophen*) 500 Mg Capsule, 1 CAP PO Q4 PRN for PAIN AND OR ELEVATED TEMP, #30 CAP Prov:RODOLFO GOMEZ PA-C 04/04/18 Metoclopramide* (Reglan*) 10 Mg Tablet, 10 MG PO Q6 PRN for NAUSEA AND/OR VOMITING, #20 TAB Prov:RODOLFO GOMEZ PA-C 04/04/18 Metoclopramide Hcl (Reglan) 5 Mg Tab, 5 MG PO Q6H PRN for NAUSEA for 20 Days, TAB Prov:IRMA LOPEZ MD 11/02/17 Reported Medications Temazepam* (Temazepam*) 30 Mg Capsule, 30 MG PO HS PRN for INSOMNIA, CAP 08/11/17 Ziprasidone* (Geodon*) 80 Mg Capsule, 80 MG PO BID, CAP 08/11/17 Allergies Allergies: Coded Allergies: hydrocodone (Verified Allergy, Severe, seizures, 05/13/19) penicillin (Verified Allergy, Unknown, 04/04/18) prochlorperazine (Verified Allergy, Unknown, 04/04/18) promethazine (Verified Allergy, Unknown, 04/04/18) PMhx/Soc History of Surgery: Yes (bilateral tubal ligation) Anesthesia Reaction: No Hx Neurological Disorder: No Hx Respiratory Disorders: No Hx Cardiac Disorders: No Hx Psychiatric Problems: Yes (bipolar,schizo) Hx Miscellaneous Medical Probl: Yes (polyps in colon, severe N/V, hemorrhoids) Hx Alcohol Use: Yes (Ocassional) Hx Substance Use: Yes (marijuana q day) Hx Tobacco Use: Yes (Once in a while) Smoking Status: Current some day smoker FmHx Family History: No diabetes, No coronary disease, No other Physical Exam Vitals Vital Signs Date Temp Pulse Resp B/P (MAP) Pulse Ox O2 O2 Flow FiO2 Time Delivery Rate 05/13/19 98.8 100 19 141/79 100 06:01 (99) Physical Exam GENERAL: The patient is well-appearing, well-nourished, in no acute distress HEENT: Atraumatic. Conjunctivae are pink. Pupils equal, round, and reactive to light. There is no scleral icterus. Tympanic membranes clear bilaterally. Oropharynx clear. CHEST: Clear to auscultation bilaterally. There are no rales, wheezes or rhonchi. HEART: Regular rate and rhythm. No murmurs, clicks, rubs or gallops. ABDOMEN:Soft, nontender and nondistended. Good bowel sounds. No rebound or guarding. No gross peritonitis. No gross organomegaly or masses. Result Diagram: 05/13/19 0636 05/13/19 0636 Results 24 hrs Laboratory Tests Test 05/13/19 06:36 05/13/19 07:33 White Blood Count 9.4 10^3/ul Red Blood Count 4.40 10^6/ul Hemoglobin 13.1 g/dl Hematocrit 38.5 % Mean Corpuscular Volume 87.5 fl Mean Corpuscular Hemoglobin 29.8 pg Mean Corpuscular Hemoglobin Concent 34.0 g/dl Red Cell Distribution Width 13.2 % Platelet Count 228 10^3/UL Mean Platelet Volume 11.6 fl Immature Granulocytes % 0.400 % Neutrophils % 75.2 % Lymphocytes % 16.6 % Monocytes % 6.6 % Eosinophils % 0.9 % Basophils % 0.3 % Nucleated Red Blood Cells % 0.0 /100WBC Immature Granulocytes # 0.040 10^3/ul Neutrophils # 7.0 10^3/ul Lymphocytes # 1.6 10^3/ul Monocytes # 0.6 10^3/ul Eosinophils # 0.1 10^3/ul Basophils # 0.0 10^3/ul Nucleated Red Blood Cells # 0.0 10^3/ul Sodium Level 142 mmol/L Potassium Level 3.4 mmol/L Chloride Level 108 mmol/L Carbon Dioxide Level 22 mmol/L Anion Gap 12 Blood Urea Nitrogen 8 mg/dl Creatinine 0.83 mg/dl Est Glomerular Filtrat Rate mL/min > 60 mL/min Glucose Level 125 mg/dl Calcium Level 10.1 mg/dl Total Bilirubin 0.8 mg/dl Direct Bilirubin 0.00 mg/dl Indirect Bilirubin 0.8 mg/dl Aspartate Amino Transf (AST/SGOT) 20 IU/L Alanine Aminotransferase (ALT/SGPT) 21 IU/L Alkaline Phosphatase 98 IU/L Total Protein 7.8 g/dl Albumin 4.7 g/dl Globulin 3.10 g/dl Albumin/Globulin Ratio 1.51 Lipase 58 U/L POC Beta HCG, Qualitative NEGATIVE Current Medications Medications Dose Sig/Chase Start Time Status Last (Trade) Ordered Route PRN Stop Time Admin Dose Reason Admin Sodium 1,000 ml @ Q1H STAT 05/13/19 DC 05/13/19 Chloride 1,000 mls/hr IV 06:18 05/13/19 06:35 07:17 10 mg ONCE STAT 05/13/19 DC 05/13/19 Metoclopramid IV 06:18 05/13/19 06:35 e HCl 06:20 (Reglan) Ketorolac 30 mg ONCE STAT 05/13/19 DC 05/13/19 Tromethamine IV 06:18 05/13/19 06:41 (Toradol) 06:20 25 mg ONCE ONCE 05/13/19 DC 05/13/19 Diphenhydrami IV 06:30 05/13/19 06:35 ne HCl 06:31 (Benadryl) Morphine 4 mg ONCE STAT 05/13/19 DC 05/13/19 Sulfate IV 07:34 05/13/19 07:44 (morphine) 07:35 Procedures/[facility] DIAGNOSTIC IMAGING REPORT Patient: FLORINDA NEIL : 1980 Age: 38 Sex: F MR #: [id number] DOS: 05/13/19 0000 Ordering MD: SAUD ALMANZAR PA-C Location: [facility] Room/Bed: PROCEDURE: US Pelvis CLINICAL INDICATION: Abdominal pain. TECHNIQUE: Transabdominal and transvaginal sonographic evaluation of the pelvis was performed. COMPARISON: MRI pelvis 12/05/2018 US PELVIS 08/11/2017 FINDINGS: MEASUREMENTS: Uterus: 8.4 x 3.6 x 4.2 cm, anteverted. Endometrium: 8.6 mm. Right ovary size: 2.7 x 1.9 x 2.0 cm. Left ovary size: 2.6 x 1.8 x 1.6 cm. Myometrium is heterogeneous in echotexture without fibroids. Endometrium is normal in thickness without a focal abnormality. Both ovaries are normal in size and echotexture. Normal flow to both ovaries. No adnexal mass. No free pelvic fluid. IMPRESSION: 1. Unremarkable pelvic ultrasound. ER Course: Toradol and zofran given in ED. Morphine given in ED MDM: 38 yr old female complaining of abdominal pain. Patient signed out AMA before ultrasound was completed. She said her ride was here to pick her up and she was feeling better. Patient was discharged with pain medication and was stable at discharge. Do not feel a CT scan was indicated. All questions answered at discharge. Departure Diagnosis: Primary Impression: Abdominal pain Condition: Stable Patient Instructions: Abdominal Pain Referrals: [facility] (PCP) Additional Instructions: FOLLOW UP WITH YOUR PRIMARY CARE PHYSICIAN TOMORROW.Return to this facility if you are not improving as expected. PRATIBHA ALMANZAR PA-C May 13, 2019 09:06
== END 2019-05-13 08:14 | disposition home or self-care (01) ==
LOC: FTE 05:55
DX: R10.84 Generalized abdominal pain (principal); F17.210 Nicotine dependence, cigarettes, uncomplicated
CPT/HCPCS: 36415; 76830; 76856; 80053; 81025; 83690; 85025; 96361; 96374; 96375; J1200; J1885; J2270; J2765; J7030; Z7502

== ENCOUNTER 2019-06-16 06:44 | Emergency (ER) | payer OTHER ==
[~2019-06-16] VITALS: Ht 154.9 cm; Wt 78.4 kg
[~2019-06-16 06:44] MED LIST changes: +CIPR500T4 PO; +LORA-441 PO; +METR500T PO
[2019-06-16 06:47] VITALS: BP 124/84; PULSE 106; RESP 20; Ht 154.9 cm; Wt 78.4 kg
[2019-06-16] MEDS ORDERED: METOCLOPRAMIDE 10 MG INJ IV STA (07:02)
[2019-06-16] MEDS ORDERED: SOD CHLORIDE 0.9% 1,000 ML IV ONE (07:02)
[2019-06-16] MEDS ORDERED: DIPHENHYDRAMINE 50 MG INJ IV ONE (07:30)
== END 2019-06-16 07:57 | disposition home or self-care (01) ==
LOC: FTE 06:44
DX: R11.2 Nausea with vomiting, unspecified (principal); J45.909 Unspecified asthma, uncomplicated; F17.210 Nicotine dependence, cigarettes, uncomplicated; R19.7 Diarrhea, unspecified
CPT/HCPCS: 36415; 80053; 83690; 85025; 96361; 96374; 96375; J1200; J2765; J7030; Z7502

== ENCOUNTER 2019-06-21 10:49 | Emergency (ER) | payer OTHER ==
[~2019-06-21] VITALS: Wt 78.0 kg
[~2019-06-21 10:49] MED LIST changes: +CLON-412 PO; +GABA300C16 PO; +QUET50TA PO
[2019-06-21 10:57] VITALS: BP 161/85; PULSE 65; RESP 18
[2019-06-21] MEDS ORDERED: KETOROLAC 30 MG INJ IV STA (11:46)
[2019-06-21] MEDS ORDERED: SOD CHLORIDE 0.9% 1,000 ML IV STA (11:46)
[2019-06-21] MEDS: ONDANSETRON 4 MG INJ IV STA ×2 (12:02→12:17)
[2019-06-21] MEDS ORDERED: METOCLOPRAMIDE 10 MG INJ IV ONE ×2 (12:30→13:00)
[2019-06-21] MEDS ORDERED: LORAZEPAM 2 MG INJ IV ONE (13:00)
[2019-06-21] MEDS ORDERED: IOHEXOL 300MG/ML 150 ML BTL ONE (13:07)
[2019-06-21] MEDS ORDERED: SOD CHLORIDE 0.9% 100 ML ONE (13:07)
== END 2019-06-21 13:50 | disposition home or self-care (01) ==
LOC: FTE 10:49
DX: K52.9 Noninfective gastroenteritis and colitis, unspecified (principal); J45.909 Unspecified asthma, uncomplicated; F17.210 Nicotine dependence, cigarettes, uncomplicated
CPT/HCPCS: 36415; 74178; 80053; 81001; 81025; 83690; 85025; 96361; 96374; 96375; 96376; J1885; J2060; J2405; J2765; J7030; Q9967; Z7502; Z7610